=== PATIENT | female | born 1970 | race Caucasian/White ===

== ENCOUNTER 2024-08-02 18:01 | Emergency (ER) | payer MEDICAID, SELFPAY ==
[2024-08-02 18:09] VITALS: PULSE 88; RESP 20; O2SAT 98; BMI 34.5
[2024-08-02 18:17] VITALS: BP 154/92; PULSE 89; RESP 18; TEMP 36.9; O2SAT 99
--- NOTE | 2024-08-02 18:30 | XR_ITS ---
Examination: CT soft tissue neck, with intravenous contrast. 2-D coronal reconstructions. 2-D sagittal reconstructions. Date and time of exam :August 02, 2024 1954 hrs. Indications: Fluid bolus stuck, recommend standard fluoroscopically guided esophagram follow-up today. CTDI: vol (mGy):14.7 DLP: (mGycm):166 Technique: 1.25 mm axial sections of the neck of the obtained. Coronal and sagittal reconstructions have been obtained. Intravenous contrast administered 60 cc Isovue-370. Low dose protocols were performed. One or more of the following dose reduction techniques were used; automated exposure control, adjustment of the mA and/or KV according to patient size, use of iterative reconstruction technique. Findings: Symmetrical nasopharynx oropharynx Symmetrical submandibular glands Nonspecific subcentimeter carotid triangle adenopathy The larynx appears normal Thyroid lobes are not enlarged The esophagus does not appear distended Normal epiglottis Impression: No soft tissue neck mass If the clinical history is food stuck in the throat, recommend elective esophagram follow-up
--- NOTE | 2024-08-02 18:30 | XR_ITS ---
Examination: CT chest with intravenous contrast 2-D sagittal and coronal reconstructions Exam date and time: August 02, 2024 1954 hrs. Indications: Food stuck in the throat today CTDI:vol (mGy) 40.4 DLP: (mGycm) 233 Technique: Multiple axial sections of the thorax have been obtained. Sections have been obtained, 3 mm slice thickness. Mediastinal and lung density settings have been obtained. Intravenous contrast administered, 60 cc Isovue-370. 2-D sagittal, coronal images obtained. Low dose protocols were performed. One or more of the following dose reduction techniques were used; automated exposure control, adjustment of the mA and/or KV according to patient size, use of iterative reconstruction technique. Findings: No thoracic aortic aneurysm dilatation or dissection Pulmonary artery segments are not enlarged No paratracheal tracheobronchial or bronchopulmonary adenopathy Esophagus is not thickened or fluid distended No pneumonia or pulmonary edema or pleural disease No visualized liver splenic lesion Absent gallbladder No pancreatic or adrenal mass Aorta normal size Impression: No mediastinal lymphadenopathy No pneumonia, pulmonary edema or pleural disease Esophagus does not appear obstructed
--- NOTE | 2024-08-02 18:32 | PD.EDABDPN ---
ED Abdominal Pain RME/HPI General Chief Complaint: Dental/Oral/Throat Stated complaint: POST CHOKE Time seen by provider: 08/02/24 18:28 Arrival date/time: 08/02/24 18:01 RME / HPI RME / HPI narrative: This section includes all my notes and documentations, including HPI, PE, and ED course. Oscar Vicente MD HPI: 53-year-old female here with possible food stuck in her throat. After eating chicken nuggets just prior to arrival. No other complaints. ROS: All negative except as documented in HPI. Physical Exam: General: Alert and oriented. No acute distress when remaining still. Eyes: Conjunctivae and lids clear. ENT: No nasal congestion. Patent airway. Neck: Supple. Heart: RRR. Lungs: No respiratory distress. Good air movement. No rhonchi, wheezing, rales. Abdomen: Soft and nontender. Skin: Warm and dry. Neuro: Alert and oriented X 3. I reviewed all diagnostic test results. My review of the neck and chest CT reports is no acute findings. Blood tests unremarkable except hypokalemia. At this point, diagnoses include possible esophageal food bolus and hypokalemia. Treatment here included glucagon 1 mg IV and oral KCl. Significant improvement noted. Recommended more outpatient care. Based on my best medical judgment, made decision no further evaluation or treatment indicated at this time. Patient understands and agrees to the discharge instructions customized and printed, see below. Discharge Instructions from Dr. Vicente printed for you: 1. After extensive evaluation, there is no food stuck. 2. It may have gone down. It may have been due to other causes, such as acid reflux, see attached handout on GERD. 3. Take omeprazole every morning and famotidine every night for 7 days then as needed. 4. See a private doctor on 08/03/2024 for recheck and further care. To make sure there is no serious intra-abdominal condition, ask for help with more investigation not available here in the ER. Such as EGD or scoping the stomach, colonoscopy or scoping the colon, and referral to see radio dispatcher. 5. Seek immediate medical care with worsening or with any concerns. Oscar Vicente MD Related Data Previous Rx's ?Medication ?Instructions ?Recorded famotidine 40 mg tablet 40 mg PO .bedtime #30 tabs 08/02/24 omeprazole 40 mg capsule,delayed 40 mg PO QDAY #30 caps 08/02/24 release Allergies Allergy/AdvReac Type Severity Reaction Status Date / Time No Known Allergies Allergy Verified 08/02/24 20:46 Course Quality Measures none Orders Category Date Time Status CT Screening NOW Care 08/02/24 18:30 Active Saline [Insert IV] NOW Care 08/02/24 18:[address] chest w con Stat Exams 08/02/24 18:[address] soft tissue neck w con Stat Exams 08/02/24 18:30 Completed CBC Stat Lab 08/02/24 18:51 Completed CMP [Comprehensive Metabolic Panel] Stat Lab 08/02/24 18:51 Completed Magnesium Stat Lab 08/02/24 18:51 Completed PT [Prothrombin Time with INR] Stat Lab 08/02/24 18:51 Completed PTT [Partial Thromboplastin Time] Stat Lab 08/02/24 18:51 Completed Glucagon Inj Med 08/02/24 18:29 Discontinued 1 mg IVP X1 ONE KCL 10% Liq UDC 15 ML Med 08/02/24 20:48 Discontinued 40 meq PO X1 ONE Vital Signs Vital signs: Vital Signs Temperature 98.5 F 08/02/24 18:17 Pulse Rate 89 08/02/24 18:17 Respiratory Rate 18 08/02/24 18:17 Blood Pressure 154/92 H 08/02/24 18:17 Pulse Oximetry (%) 99 08/02/24 18:17 Oxygen Delivery Method Room Air 08/02/24 18:17 Abdominal Pain MDM Patient data External records reviewed:: None Clinical information provided by:: patient and EMS Social determinants that could affect healthcare access:: none Patient has the following chronic illnesses:: None How is presenting disease/condition affected by chronic disease/condition?: no chronic disease Evaluation data The following diagnostics were reviewed and interpreted by me:: lab results and radiology exam(s) Lab and/or radiology exams considered but not ordered:: None Interpretation Summary: Normal diagnostics Medications / Prescriptions Medications or Prescriptions considered but not ordered:: None Medication administrations:: Medication Administration History Discontinued Medications Glucagon (Glucagon Inj 1 Mg Vial) 1 mg IVP X1 ONE Stop: 08/02/24 18:30 Last Admin: 03/06/25 19:34 Dose: 1 mg Documented By: CB Potassium Chloride (Potassium Chloride 10% 20 Meq/15 Ml Udc) 40 meq PO X1 ONE Stop: 08/02/24 20:49 Last Admin: 08/02/24 21:06 Dose: 40 meq Documented By: Glucagon and KCl Consultations Consultation(s) initiated? (list below): No Diagnosis Differential diagnosis abdominal pain: other (Esophageal food bolus, anxiety, GERD, gastritis) Most likely diagnosis given after review of the tests above:: Anxiety and GERD Admission Indicated Admission indicated?: not indicated Explain why admission is indicated or not indicated:: With no esophageal food bolus, there is no indication for admission. Admission Request Was there a request for admission?: No Disposition Plan Disposition Plan: Discharge Discharge Attestation Discharge Attestation: The patient and all family members were given an opportunity to ask questions and understood the discharge instructions. Discharge instructions specifically effects, indications for sooner follow up or return to the emergency department, and the expected course of current diagnosis. Patient condition: Stable Discharge Plan Plan Patient Disposition: HOME (Self Care) Prescriptions/Referrals Prescriptions/Med Rec: New famotidine 40 mg tablet 40 mg PO .bedtime Qty: 30 0RF omeprazole 40 mg capsule,delayed release(DR/EC) 40 mg PO QDAY Qty: 30 0RF Referrals: No Primary/Family,Physician [Primary Care Provider] - In 1 week Problem List Clinical Impression: Choking sensation Patient/Caregiver Discharge Instructions Discharge Activity: activity as tolerated Education Materials: ED GERD (Adult), ED Foreign Body Esophageal Rslv Additional Instructions: Discharge Instructions from Dr. Vicente printed for you: 1. After extensive evaluation, there is no food stuck. 2. It may have gone down. It may have been due to other causes, such as acid reflux, see attached handout on GERD. 3. Take omeprazole every morning and famotidine every night for 7 days then as needed. 4. See a private doctor on 08/03/2024 for recheck and further care. To make sure there is no serious intra-abdominal condition, ask for help with more investigation not available here in the ER. Such as EGD or scoping the stomach, colonoscopy or scoping the colon, and referral to see radio dispatcher. 5. Seek immediate medical care with worsening or with any concerns. Print Language: Icelandic Stand Alone Forms: Rashmi Award Info., Patient Portal Info Letter
[2024-08-02 19:08] LABS: Basophils # (Auto) 0.1 Thou/mm3 (0.0-0.2); Basophils % (Auto) 1 % (0-2.5); Eosinophils # (Auto) 0.1 Thou/mm3 (0.0-0.5); Eosinophils % (Auto) 1 % (0-10); Hematocrit 36.8 % (36.0-46.0); Hemoglobin 13.2 g/dL (12.0-16.0); Immature Granulocytes % (Auto) 1 % (0-0); Immature Granulocytes Auto 0.07 Thou/mm3 (0.00-0.00); Lymphocytes # (Auto) 2.1 Thou/mm3 (1.0-4.8); Lymphocytes % (Auto) 14 % (10-50); Mean Corpuscular HGB Conc 35.9 g/dl (31.0-37.0); Mean Corpuscular Hemoglobin 29.7 pg (25.0-35.0); Mean Corpuscular Volume 83 fL (80-100); Monocytes # (Auto) 0.7 Thou/mm3 (0.0-0.8); Monocytes % (Auto) 5 % (0-12); Neutrophils # (Auto) 12.1 Thou/mm3 (1.8-7.7); Neutrophils % (Auto) 79 % (37-80); Nucleated Red Blood Cell % 0 /100 WBC (0); Platelet Count 279 Thou/mm3 (140-440); RDW Standard Deviation 40.6 fL (36.4-46.3); Red Blood Count 4.44 Miln/mm3 (4.00-5.20); White Blood Count 15.2 Thou/mm3 (3.6-11.0)
[2024-08-02 19:24] LABS: Alanine Aminotransferase 27 U/L (10-49); Albumin, Serum 4.7 gm/dL (3.5-5.0); Albumin/Globulin Ratio 1.7 (1.2-2.2); Alkaline Phosphatase 88 U/L (46-116); Anion Gap 8 (7-16); Aspartate Amino Transferase 43 U/L (0-34); BUN/Creatinine Ratio 11 Ratio (12-20); Bilirubin,Total 0.3 mg/dL (0.3-1.2); Blood Urea Nitrogen 11 mg/dL (9-23); Calcium 9.5 mg/dL (8.3-10.6); Calcium (Corrected) 9.5 mg/dL (8.5-10.1); Carbon Dioxide 24.7 mMol/L (20.0-31.0); Chloride 107 mMol/L (98-107); Estimated Creatinine Clearance 62.4 mL/min (>60); Globulin 2.7 gm/dL (2.3-3.5); Glucose 108 mg/dL (74-106); Osmolality,Calculated 279 (275-295); Potassium 3.1 mMol/L (3.4-5.1); Sodium 140 mMol/L (136-145); Total Protein 7.4 gm/dL (5.7-8.2); eGFR > 60 See Note
[2024-08-02 19:26] LABS: Partial Thromboplastin Time 24.1 Seconds (22.0-36.0); Prothrombin Time 10.7 Seconds (9.0-12.2)
[2024-08-02] MEDS: GLUCAGON INJ 1 MG VIAL IVP (19:34)
[2024-08-02] MEDS: POTASSIUM CHLORIDE 10% 20 MEQ/15 ML UDC 40 MEQ PO (21:06)
[2024-08-02 21:21] VITALS: RESP 18
== END 2024-08-02 21:24 | disposition home or self-care (01) ==
PROVIDERS: Emergency Provider Emergency Medicine
DX: R09.89 Other specified symptoms and signs involving the circulatory and respiratory systems (principal)
CPT/HCPCS: 36415; 70491; 71260; 80053; 83735; 85025; 85610; 85730; 96374; 99285; A4649; J1610; Q9967; A9270